=== PATIENT | male | born 1995 ===

== ENCOUNTER 2017-06-21 01:34 | Emergency (ER) | payer OTHER ==
[2017-06-21 01:46] VITALS: BP 137/86; PULSE 93; RESP 20; TEMP 99; O2SAT 100
[2017-06-21] MEDS ORDERED: Tetanus/Diphtheria Toxoids 0.5 ml Syringe IM ONE ×2 (02:13→02:24)
[2017-06-21] MEDS ORDERED: Bacitracin 500 Units/gm Oint Foilpak UD TOP ONE (02:18)
--- NOTE | 2017-06-21 02:21 | C.PDOC ---
History Of Present Illness 21 year old male presents to the ED for evaluation after a slip and fall down steps onto his buttocks and back (fell down approx 10-15 steps). He complains of headache, mild dizziness/lightheadedness, and an abrasion on his right hand. Patient states he hit the back of his head several times on the stairs, but denies LOC. He is unsure of tetanus vaccination status. Patent denies vomiting , neck pain, back pain, chest pain, SOB, abdominal pain. - HPI Time Seen by Provider: 06/21/17 02:01 Chief Complaint (Nursing): Trauma History Per: Patient History/Exam Limitations: no limitations Onset/Duration Of Symptoms: Hrs Injury Occurred (Timing): Just Before Arrival Location Of Injury: Right: Buttock, Left: Buttock, Posterior: Head Severity: Mild - Fall Fall:Prior To Injury: Slipped Past Medical History Reviewed: Historical Data, Nursing Documentation, Vital Signs Vital Signs: Last Vital Signs Temp 99 F 06/21/17 01:41 Pulse 93 H 06/21/17 01:41 Resp 20 06/21/17 01:41 BP 137/86 06/21/17 01:41 Pulse Ox 100 06/21/17 04:30 - Medical History PMH: No Chronic Diseases Family History: States: No Known Family Hx - Social History Hx Alcohol Use: No Hx Substance Use: No - Immunization History Hx Tetanus Toxoid Vaccination: Yes Hx Influenza Vaccination: No Hx Pneumococcal Vaccination: No Review Of Systems Except As Marked, All Systems Reviewed And Found Negative. Eyes: Negative for: Vision Change Cardiovascular: Negative for: Chest Pain, Palpitations Respiratory: Negative for: Shortness of Breath Gastrointestinal: Negative for: Nausea, Vomiting, Abdominal Pain Skin: Positive for: Other (abrasion on right hand ) Neurological: Positive for: Headache, Dizziness. Negative for: Weakness, Numbness, Incoordination, Change in Speech, Confusion Physical Exam - Physical Exam Appears: Well, Non-toxic, No Acute Distress Skin: Warm, Dry, No Ecchymosis, Other (small skin avulsion at right hand thenar eminence) Head: Atraumatic (face), No Swelling, Laceration (0.5 cm laceration at left parietal scalp with mild bleeding), Other (two contusions to right occipital scalp ) Eye(s): bilateral: Normal Inspection ((-) [place] eyes), PERRL, EOMI Ear(s): Bilateral: Normal ((-) Zayas sign) Nose: Normal, No Epistaxis, No Deformity, No Tenderness, No Septal Hematoma Oral Mucosa: Moist Neck: Normal, Normal ROM, No Midline Cervical Tenderness, No Paracervical Tenderness, No Step Off Deformity, Supple Chest: Symmetrical, No Tenderness Cardiovascular: Rhythm Regular Respiratory: Normal Breath Sounds, No Rales, No Rhonchi, No Wheezing Gastrointestinal/Abdominal: Normal Exam, Bowel Sounds, Soft, No Tenderness Back: No Vertebral Tenderness, No Paraspinal Tenderness Extremity: Normal ROM, No Tenderness, Capillary Refill (< 2 sec all digits ), No Deformity, No Swelling Extremity: Bilateral: Atraumatic, Normal Color And Temperature, Normal ROM Pulses: Left Radial: Normal, Right Radial: Normal Neurological/Psych: Oriented x3, Normal Speech, Normal Cognition, Normal Cranial Nerves, No Cerebellar Signs, Normal Motor, Normal Sensation Gait: Steady ED Course And Treatment O2 Sat by Pulse Oximetry: 100 (room air ) Pulse Ox Interpretation: Normal Progress Note: Patient given PO tylenol and tetanus vaccination IM. One staple placed in scalp laceration by me, patient tolerated well. Wound dressed with bacitracin and gauze dressing by nurse. Reevaluation Time: 02:30 Reassessment Condition: Improved (Patient reassessed, is resting comfortably, states he feels better. He was instructed to return to ED/PMD in 5-7 days for staple removal. Patient counseled about head injuries and what symptoms to expect. He understands he should reuturn to ED if he develops any concerning symptoms, such as seveer headache/nausea/dizziness/visual changes, etc. Patient given Rxs for Naprosyn and Zofran ODT.) Disposition Counseled Patient/Family Regarding: Diagnosis, Need For Followup, Rx Given - Disposition Referrals: Michelle Alfonso MD [Staff Provider] - Disposition: HOME/ ROUTINE Disposition Time: 02:30 Condition: STABLE Additional Instructions: FOLLOW UP WITH YOUR DOCTOR IN 1-2 DAYS STAPLE REMOVAL IN 5-7 DAYS RETURN TO ER IF YOU HAVE WORSENING SYMPTOMS, SUCH SEVERE DIZZINESS, NAUSEA, VISUAL CHANGES, DIFFICULTY AMBULATING, ETC Prescriptions: Naproxen [Naprosyn Tab] 375 mg PO BID PRN #20 tab PRN Reason: pain Ondansetron [Zofran Odt] 4 mg PO Q8 PRN #10 odt PRN Reason: Nausea/Vomiting Instructions: Laceration (ED), Head Injury (ED) Forms: [employer] (Swedish) Print Language: CZECH - POA Present On Arrival: Falls Or Trauma - Clinical Impression Clinical Impression: Scalp laceration, Closed head injury - Scribe Statement The provider has reviewed the documentation as recorded by the Scribe Carmina Ruiz All medical record entries made by the Daronibe were at my direction and personally dictated by me. I have reviewed the chart and agree that the record accurately reflects my personal performance of the history, physical exam, medical decision making, and the department course for this patient. I have also personally directed, reviewed, and agree with the discharge instructions and disposition.
[2017-06-21] MEDS ORDERED: Bacitracin 500 Units/gm Oint Foilpak UD ONE (02:31)
== END 2017-06-21 02:45 | disposition home or self-care (01) ==
LOC: C.ER 01:34
DX: S01.01XA Laceration without foreign body of scalp, initial encounter (principal); W10.9XXA Fall (on) (from) unspecified stairs and steps, initial encounter; Y92.008 Other place in unspecified non-institutional (private) residence as the place of occurrence of the external cause

== ENCOUNTER 2017-06-26 19:44 | Emergency (ER) | payer OTHER ==
[2017-06-26 20:20] VITALS: TEMP 98; O2SAT 98
--- NOTE | 2017-06-26 20:30 | C.PDOC ---
History Of Present Illness 21 yo male come in for scheduled staple removal from scalp after laceration was repaired here in ED on 06/20/17. AT present time, pt denies fever, chills, headache, wound draining or any other active complaints. Ambulate to ED for evaluation, not in any apparent distress. Time Seen by Provider: 06/26/17 20:22 Chief Complaint (Nursing): Abnormal Skin Integrity History Per: Patient Current Symptoms Are (Timing): Better Past Medical History Reviewed: Historical Data, Nursing Documentation, Vital Signs Vital Signs: Last Vital Signs Temp 98 F 06/26/17 20:18 Pulse 82 06/26/17 20:18 Resp 20 06/26/17 20:18 BP 125/73 06/26/17 20:18 Pulse Ox 98 06/26/17 20:30 - Medical History PMH: No Chronic Diseases Surgical History: No Surg Hx Family History: States: Unknown Family Hx - Social History Hx Alcohol Use: No Hx Substance Use: No - Immunization History Hx Tetanus Toxoid Vaccination: Yes Hx Influenza Vaccination: No Hx Pneumococcal Vaccination: No Review Of Systems Except As Marked, All Systems Reviewed And Found Negative. Constitutional: Negative for: Fever, Chills Eyes: Negative for: Vision Change Skin: Positive for: Lesions Neurological: Negative for: Weakness, Numbness, Altered Mental Status, Headache , Dizziness Physical Exam - Physical Exam Appears: Well, Non-toxic, No Acute Distress Skin: Normal Color, Warm Head: Normacephalic, Laceration (well healed laceration to left parietal scalp closed with staple#1. NO edema, no wound draining, no palpable deformity.) Eye(s): bilateral: PERRL Neurological/Psych: Oriented x3, Normal Speech ED Course And Treatment O2 Sat by Pulse Oximetry: 98 Pulse Ox Interpretation: Normal Progress Note: Scalp laceration cleaned, staple #1 removed without difficulty. Pt advised on wound care. ref. to f/u with PMD as need. Disposition Counseled Patient/Family Regarding: Diagnosis, Need For Followup - Disposition Referrals: [facility] [Outside] Disposition: HOME/ ROUTINE Disposition Time: 20:20 Condition: STABLE Additional Instructions: Follow up with PMD as need for further evaluation and treatment. Instructions: Stitches Removal (ED) Forms: [employer] (Grenadian) - Clinical Impression Clinical Impression: Removal of staple
[2017-06-26 20:57] VITALS: BP 118/62; PULSE 72; RESP 18
== END 2017-06-26 20:58 | disposition home or self-care (01) ==
LOC: C.ER 19:44
DX: Z48.02 Encounter for removal of sutures (principal)